=== PATIENT | female | born 1930 | race Caucasian/White ===

== ENCOUNTER 2018-10-17 17:13 | Observation (INO) ==
--- NOTE | 2018-10-17 21:23 | Internal Med History&Physical ---
<Quan Murrell - Last Filed: 10/18/18 01:08> Date of Encounter: 10/18/18 Time of Encounter: 22:46 Internal Medicine - H&P: HPI Chief complaint: SOB Admitted From: Emergency Dept Plans for Post Hospital Care: Home History of present illness: Ms. LANDIN is a 87 year old female with past medical history of hypertension, hyperlipidemia presents the emergency department with complaint of shortness of breath. She initially presented to [facility] emergency room. Patient states that she has been experiencing shortness breath on exertion for approximately 1 week. She has never experienced these symptoms in the past except for one episode approximately 6 years ago when she had pneumonia. Shortness of breath is not present at rest and she has no associated fevers, chills, productive cough, nausea, vomiting, changes in bowel movement, changes in urinary symptoms, rashes, numbness, tingling, joint pains. She does not have symptoms orthopnea but does admit to some lower extremity edema and and abdominal fullness. She did have some epigastric abdominal pain earlier this evening which she states is due to her pushing her abdomen due to the fluid. She also denies any symptoms of dysphagia, reflux, odynophagia. She states that overall oral intake has been relatively poor due to poor appetite. In the [facility] emergency room, vital signs are stable. Laboratory results showed: WBC 7.2, hemoglobin 9.2, platelets 417, sodium 135, ataxia 5.6, chloride 109, bicarb 17, BUNs/creatinine of 35/1.56, glucose 144. LFTs show alkaline phosphatase 108, AST of 26, ALT 14, albumin 3.2, lipase 48. D-dimer was obtained and was elevated at 3295. Chest x-ray shows no acute process and troponin was within normal limits. Bilateral lower extremity Dopplers were obtained and were negative for DVT. She was given subcutaneous Lovenox for concerns for pulmonary embolism, [address] of the abdomen was also obtained which showed ascites with omental caking which may be secondary to mesenteric edema but malignancy could not be ruled out. At time of interview, patient states that she is feeling well and is not currently short of breath. She is also experiencing abdominal pain at this time is still expressing some abdominal fullness. Past medical history: As above. Patient also states that she is supposed to be on iron supplementation and is scheduled to see a engineering vice president near future Past surgical history: Patient denies Social history: Denies tobacco use, alcohol use, drug use Family history: Father with esophageal cancer, sister with breast cancer Internal Medicine - H&P: Meds Amlodipine Besylate 5 mg PO DAILY 10/17/18 [History] Aspirin [Lo-Dose Aspirin EC] 81 mg PO 10/17/18 [History] Atorvastatin Calcium [Lipitor] PO HS 10/17/18 [History] Carvedilol [Coreg] 6.25 mg PO BIDWM 10/17/18 [History] Lisinopril-HCTZ 20-12.5 [Prinzide 20-12.5] PO BID 10/17/18 [History] Multivit-Min/FA/Lycopen/Lutein [Centrum Silver Tablet] 1 each PO 10/17/18 [ History] Allergy/AdvReac Type Severity Reaction Status Date / Time No Known Allergies Allergy Verified 10/17/18 21:52 All Systems PM: A 10-system review of systems was performed and is negative for pertinent findings except as documented above in the HPI. Review of systems: - Constitutional: Denies fevers, chills, weight loss, generalized fatigue - Head/Neck: Denies CARPENTER, neck stiffness - EENT: Denies vision changes/blurriness,, rhinorrhea, congestion, sore throat, odynaphagia , dysphagia - CVS: Denies chest pain, palpitations, orthopnea, edema, PND, - Pulm: Admits to shortness of breath on exertion. Denies sputum, hematemesis, wheezing - GI: Abdominal pain. Denies anorexia, nausea, vomiting, diarrhea, constipation, melena - : Denies dysuria, increased frequency, urgency, hematuria, - Heme: Denies ease of bleeding or bruising - MSK: Denies joint pain, limited ROM - Skin: Denies rashes, ulcers, color changes, - Neuro: Denies CARPENTER, paresthesias, focal deficits, ataxia, - Constitutional Exam: Gen.: Vitals noted. No acute distress. AAOx3, resting comfortably in bed. HEENT: PERRL/EOMI, oropharynx clear, Normocephalic, atraumatic, MMM Neck: Supple. No adenopathy. No thyroid nodules. Cardiac: RRR- mildly tachycardic, no murmur, +S1/S2, 1+ BLE edema Pulmonary: CTA bilaterally, no wheezes, rales or rhonchi, equal chest expansion, unlabored breathing Abdomen: soft, nontender, BS noted, no guarding, no palpable HSM. Distended, fluid wave Skin: warm and dry, no visible lesions. MSK: ROM intact, no joint swelling noted, gait no assessed while in bed. Non tender calf or clubbing Neuro: A&Ox3, moves all extremities, no focal deficits, sensation intact, Psych: Appropriate mood and behavior, AOx3 Internal Med - H&P Results - Labs CBC & Chem 7: 10/17/18 22:34 10/17/18 22:34 - Assessment and Plan (1) Shortness of breath Current Visit: Yes Status: Acute Assessment and plan: - Etiology may be related to ascites as below - CXR in [place] shows no acute process - Clinically has low suspicion for infectious process - D-dimer elevated which may be related to malignancy, but also may be related to PE - Dopplers negative in [place] - Given lovenox in [place] - Currently tolerating room air without difficulty. Plan - Will order V/Q scan - Will treat fluid overload status as below for ascites - Suspect that symptoms will improve with paracentesis (2) Ascites Current Visit: Yes Status: Suspected Assessment and plan: - Possible malignant ascites, primary unclear - Differential includes GI vs ovarian cancer - CT abdomen/pelvis in [place] does not mention primary but states mesenteric edema may be due to other fluid overload states - CT does mention mesenteric caking which does raise suspicion for malignancy however - Family history of esophageal cancer Plan - Will order IR consult for diagnostic paracentesis with pleural studies - Echocardiogram - urine studies - Prealbumin Qualifiers: Ascites type: malignant Qualified Code(s): R18.0 - Malignant ascites (3) QUENTIN (acute kidney injury) Current Visit: Yes Status: Acute Assessment and plan: - BUN/Cr of 35/1.56 - Unclear baseline - patent states that she was supposed to establish with Dr. Chambers in near future - K of 5.6, Bicarb of 17 may be related to this - Etiology if an QUENTIN may be due to decreased oral intake however patient clinically appears hypervolemic. - Possible third spacing due to hypoalbuminemia Plan - Will repeat labs at our facility and trend with AM labs - Will hold off fluids given volume status at this time - Will obtain urine studies to rule out nephrotic syndrome - Will change CTA to V/Q as above (4) Metabolic acidosis Current Visit: Yes Status: Acute Assessment and plan: - Bicarb of 17 - AG of 9 - Etiology unclear at this time - Possible GI related, patient reported loose bowel movements recently due to iron supplementation - Also a possibility is RTA, K is 5.6 which may point to type 4. - Will repeat labs to confirm, obtain urine studies (5) HTN (hypertension) Current Visit: Yes Status: Chronic Assessment and plan: - well controlled - Will continue home meds except for BILLIE due to QUENTIN Qualifiers: Hypertension type: essential hypertension Qualified Code(s): I10 - Essential (primary) hypertension (6) HLD (hyperlipidemia) Current Visit: Yes Status: Chronic Assessment and plan: continue statin Qualifiers: Hyperlipidemia type: unspecified Qualified Code(s): E78.5 - Hyperlipidemia, unspecified (7) Elevated d-dimer Current Visit: Yes Status: Acute Assessment and plan: - Possible due to malignancy but cannot rule out PE - Bilateral dopplers negative in [place]. - Elevated at 3295 - V/Q ordered as above (8) DVT prophylaxis Current Visit: Yes Status: Acute Assessment and plan: received lovenox in [place]. Will monitor for now and check on V/Q tomorrow - Time Spent With Patient Total time spent is greater than 50% in coordination of care (as documented) at patient's floor/unit and/or counseling patient: <Josie Gregory Z - Last Filed: 10/18/18 06:07> Date of Encounter: 10/17/18 Internal Medicine - H&P: HPI History of present illness: Ms. Landin is a 88 year old female All Systems PM: A 10-system review of systems was performed and is negative for pertinent findings except as documented above in the HPI. - Constitutional Vitals: Temp Pulse Resp BP Pulse Ox 98.5 F 91 18 135/58 96 10/18/18 03:09 10/18/18 03:09 10/18/18 03:09 10/18/18 03:09 10/18/18 03:09 Internal Med - H&P Results - Labs CBC & Chem 7: 10/17/18 22:34 10/17/18 22:34 Labs: Short CBC 10/17/18 Range/Units 22:34 WBC 5.8 (4.3-11.1) K/mcL Hgb 8.6 L (11.5-15.4) g/dL Hct 27.2 L (35.3-44.9) % Plt Count 391 (140-400) K/mcL Neutrophils # 3.7 (1.6-8.9) K/mcL BMP 10/17/18 22:34 Sodium 136 Potassium 5.2 H Chloride 111 H Carbon Dioxide 16 L BUN 33 H Creatinine 1.46 H Glucose 108 H Calcium 8.5 L Liver Function 10/17/18 Range/Units 22:34 Total Bilirubin 0.3 (0.3-1.0) mg/dL AST 22 (13-39) Units/L ALT 13 (7-52) Units/L Alkaline Phosphatase 98 (34-104) Units/L Albumin 3.0 L (3.5-5.7) g/dL - Time Spent With Patient Total time spent is greater than 50% in coordination of care (as documented) at patient's floor/unit and/or counseling patient: - Attending Attestation on 10/17/18 I performed a history and physical examination of the patient and discussed his management with the resident. I reviewed the residents note and agree with the documented findings and plan of care.
[2018-10-17] MEDS ORDERED: Acetaminophen 325 MG TABLET PO PRN (22:19)
[2018-10-17] MEDS ORDERED: *HR* HYDROcodone/Acet 5/325 mg TABLET PO PRN (22:19)
[2018-10-17] MEDS ORDERED: Naloxone 0.4 MG/ML INJ IVP PRN (22:19)
[2018-10-17] MEDS ORDERED: Ondansetron 4 MG/2 ML VIAL IVP PRN (22:19)
[2018-10-17 22:54] LABS: Basophils % 0.3 %; Eosinophils # 0.1 K/mcL (0.0-0.6); Eosinophils % 1.4 %; Hematocrit 27.2 % (35.3-44.9); Hemoglobin 8.6 g/dL (11.5-15.4); Lymphocytes # 1.2 K/mcL (0.6-4.6); Lymphocytes % 20.7 %; Mean Corpuscular HGB Conc 31.6 g/dL (31.6-35.5); Mean Corpuscular Hemoglobin 32.7 pg (28.0-33.3); Mean Corpuscular Volume 103.4 fL (83.0-100.0); Mean Platelet Volume 9.7 fL (9.4-12.4); Monocytes # 0.7 K/mcL (0.0-1.3); Monocytes % 12.4 %; Neutrophils # 3.7 K/mcL (1.6-8.9); Platelet Count 391 K/mcL (140-400); Red Blood Count 2.63 M/mcL (3.82-4.97); Red Cell Distribution Width 15.5 % (11.5-14.5); Segmented Neutrophils % 64.2 %; White Blood Count 5.8 K/mcL (4.3-11.1)
[2018-10-17 23:17] LABS: Albumin/Globulin Ratio 0.8 (1.1-2.2); Bilirubin,Total 0.3 mg/dL (0.3-1.0); Calcium 8.5 mg/dL (8.6-10.3); Globulin 3.8 g/dL (2.4-3.5); Potassium 5.2 mEq/L (3.5-5.1); Total Protein 6.8 g/dL (6.4-8.9)
[2018-10-18 04:28] LABS: Protein/Creatinine Ratio,Urine 0.11 mg/mg (0.00-0.20)
[2018-10-18 04:45] LABS: Creatinine,Urine 105 mg/dL; Microalbumin,Urine < 7 mg/L
[2018-10-18 07:06] LABS: Basophils % 0.6 %; Eosinophils # 0.1 K/mcL (0.0-0.6); Eosinophils % 1.4 %; Hematocrit 25.6 % (35.3-44.9); Immature Granulocytes % 1.6 % (0-4); Lymphocytes % 19.4 %; Mean Corpuscular HGB Conc 31.3 g/dL (31.6-35.5); Mean Corpuscular Hemoglobin 32.7 pg (28.0-33.3); Mean Corpuscular Volume 104.5 fL (83.0-100.0); Mean Platelet Volume 9.9 fL (9.4-12.4); Monocytes # 0.6 K/mcL (0.0-1.3); Monocytes % 12.4 %; Neutrophils # 3.3 K/mcL (1.6-8.9); Platelet Count 390 K/mcL (140-400); Red Blood Count 2.45 M/mcL (3.82-4.97); Red Cell Distribution Width 15.8 % (11.5-14.5); Segmented Neutrophils % 64.6 %; White Blood Count 5.1 K/mcL (4.3-11.1)
[2018-10-18 07:18] LABS: INR 1.3; Prothrombin Time 14.2 Seconds (9.4-12.1)
[2018-10-18 07:27] LABS: Albumin 2.7 g/dL (3.5-5.7); Calcium 8.4 mg/dL (8.6-10.3); Potassium 5.5 mEq/L (3.5-5.1)
[2018-10-18] MEDS: Aspirin Enteric Coated 81 MG Tablet PO SCH (10:02)
[2018-10-18] MEDS: amLODIPine 5 MG TABLET PO SCH (10:02)
[2018-10-18 10:30] LABS: Bilirubin,Urine Negative (Negative); Blood,Urine Negative (Negative); Clarity,Urine Cloudy (Clear); Color,Urine Yellow (Yellow); Glucose,Urine (UA) Normal (Normal); Ketones,Urine Negative (Negative); Leukocyte Esterase,Urine Small (Negative); Nitrite,Urine Negative (Negative); PH,Urine 5.5 pH Units (5.0-8.0); Protein,Urine Negative (Neg-Trace); Specific Gravity,Urine 1.018 (1.010-1.025); Urobilinogen,Urine Normal (Normal)
[2018-10-18 10:33] LABS: Bacteria,Urine Few per hpf (None-Few); Hyaline Casts,Urine None Seen per lpf (None-Few); Squamous Epithelial Cell,Urine Many per lpf (None-Few)
[2018-10-18 10:44] LABS: RBC,Urine 0-3 per hpf (0-3)
--- NOTE | 2018-10-18 12:28 | IR Procedure Note ---
Date of procedure: 10/18/18 Consent Obtained: Verbal consent, Written consent Timeout: Correct patient and procedure verified, Correct site verified, Time out performed, Skin prep completed Local anesthetic: Lidocaine 1% Was there an radiology practitioner assistant present: No Estimated blood loss (cc): 1 Complications: None; Tolerated procedure well Indications: Ascites Procedure Performed: Paracentesis Site/Technique: US guided paracentesis performed Results/Findings (any specimens removed): Small volume abdominal ascites Post Procedure Treatment Plan: Continue inpatient care Specimen: serous ascites
[2018-10-18 14:13] LABS: Total Protein,Peritoneal Fluid 4.5 g/dL
[2018-10-18 14:33] LABS: RBC,Peritoneal Fluid < 0.002 M/mcL
[2018-10-18 16:21] LABS: Basophils,Peritoneal Fluid 0 %; Eosinophils,Peritoneal Fluid 0 %
[2018-10-18 16:29] LABS: Appearance of Peritoneal Fl CLOUDY (Clear)
--- NOTE | 2018-10-18 16:43 | Internal Med Progress Note ---
Hospitalist Progress Note - Encounter Date of Encounter: 10/18/18 Time of Encounter: 10:00 - Subjective Interval History: No major events overnight. Patient was seen this a.m. sHe denied fever, chills or night sweats. sHe has no nausea, vomiting or abdominal pain. Patient denied chest pain, shortness of breath or palpitation. - Exam Vitals: Temp Pulse Resp BP Pulse Ox 98.1 F 87 14 128/64 98 10/18/18 14:40 10/18/18 14:40 10/18/18 14:40 10/18/18 14:40 10/18/18 14:40 Exam: Gen.: Vitals noted. No acute distress. AAOx3, resting comfortably in bed. HEENT: PERRL/EOMI, oropharynx clear, Normocephalic, atraumatic, MMM Neck: Supple. No adenopathy. No thyroid nodules. Cardiac: RRR- mildly tachycardic, no murmur, +S1/S2, 1+ BLE edema Pulmonary: CTA bilaterally, no wheezes, rales or rhonchi, equal chest expansion, unlabored breathing Abdomen: soft, nontender, BS noted, no guarding, no palpable HSM. Distended, fluid wave Skin: warm and dry, no visible lesions. MSK: ROM intact, no joint swelling noted, gait no assessed while in bed. Non tender calf or clubbing Neuro: A&Ox3, moves all extremities, no focal deficits, sensation intact, Psych: Appropriate mood and behavior, AOx3 - Assessment and Plan (1) Hyperkalemia Current Visit: Yes Status: Acute (2) QUENTIN (acute kidney injury) Current Visit: Yes Status: Acute (3) DVT prophylaxis Current Visit: Yes Status: Acute (4) Elevated d-dimer Current Visit: Yes Status: Acute (5) HTN (hypertension) Current Visit: Yes Status: Chronic (6) Ascites Current Visit: Yes Status: Suspected - Summary of Assessment and Plan Summary of Assessment and Plan: 88-year-old female with history of HTN, hyperlipidemia, CKD who was sent from [facility] due to shortness of breath. She had exertional shortness of breath for approximately a week. She also noted epigastric abdominal pain with abdominal bloating started at the same time. She denied unintentional weight loss, fever, or night sweats however she endorsed chills. She had elevated d- dimer at [place] for which she had lower extremity Doppler with negative findings for DVT. Patient was sent to our facility for further management. Ascites: - Unknown etiology at this point. IR was consulted and 3 L of serous fluid was drained. - Fluid analysis is pending. I sent for cytology, cultures, and albumin level. - She is known to have chronic kidney disease for which she was referred to a ad clerk by her family doctor. Very unlikely to be 2/2 nephrotic syndrome given her low urine albumin to creatinine ratio. - CT of the abdomen at [facility] did not reveal cirrhosis however it revealed ascites with mesenteric edema and questionable omental caking. - She had Elevated D-dimer at [facility], US doppler was negative for PE, V/Q scan was negative here. (Unable to give contrast given her CKD) - Echo with EF 60%, mild diastolic dysfunction, normal right ventricle, [id number] AR, mild TR, mild pulmonary hypertension. - At this point, given her elevated d-dimer: will check for US pelvis to r/u ovarian cancer. Cancer antigen of CA 125/CEA/CA 19-9 ordered. - I would go ahead and order ultrasound of the abdomen to rule out cirrhosis. LF T is normal, so budd chiari syndrome is not on my DD. Anemia: - Hemoglobin is 8, no baseline to compare. - We will check iron profile, ferritin, B12, TSH, folic acid, occult blood. CKD: - Her creatinine is 1.4, unknown baseline. Request to get outpatient records. - Was referred to a ad clerk as outpatient however she was not able to see since she got admitted to the hospital. - Her globulin levels are elevated. Along with her anemia and non anion gap acidosis, I will check her free light chains and protein electrophoresis. - check hepatitis profile as well. - Will hold of IVF or Diuretics at this point. hold Lisinopril and Hctz. - Nephrology service is consulted. Appreciate recommendation. Hyperkalemia: - 2/2 above and acidosis. - We will give her Kayexalate. - Check BMP tomorrow. dvt PPX: sc heparin I reviewed independently all laboratory workup, pertinent images including x- rays and CT scans. I also reviewed independently and EKGs and my findings are in the body of my assessment and plan. I ordered the laboratory workup and images myself. I discussed finding with patient's, their families, RN's and consultants involved in the care of the patient. - Time Spent with Patient Total time spent is greater than 50% in coordination of care (as documented) at patient's floor/unit and/or counseling patient: Plan of Care Discussed with: patient Internal Medicine: Result - Labs CBC & Chem 7: 10/18/18 06:17 10/18/18 06:17 Labs: Short CBC 10/17/18 10/18/18 Range/Units 22:34 06:17 WBC 5.8 5.1 (4.3-11.1) K/mcL Hgb 8.6 L 8.0 L (11.5-15.4) g/dL Hct 27.2 L 25.6 L (35.3-44.9) % Plt Count 391 390 (140-400) K/mcL Neutrophils # 3.7 3.3 (1.6-8.9) K/mcL BMP 10/17/18 10/18/18 22:34 06:17 Sodium 136 139 Potassium 5.2 H 5.5 H Chloride 111 H 112 H Carbon Dioxide 16 L 19 L BUN 33 H 32 H Creatinine 1.46 H 1.49 H Glucose 108 H 98 Calcium 8.5 L 8.4 L Liver Function 10/17/18 10/18/18 Range/Units 22:34 06:17 Total Bilirubin 0.3 (0.3-1.0) mg/dL AST 22 (13-39) Units/L ALT 13 (7-52) Units/L Alkaline Phosphatase 98 (34-104) Units/L Albumin 3.0 L 2.7 L (3.5-5.7) g/dL Urine 10/18/18 Range/Units 03:40 Urine Color Yellow (Yellow) Urine Clarity Cloudy A (Clear) Urine pH 5.5 (5.0-8.0) pH Units Ur Specific [place] 1.018 (1.010-1.025) Urine Protein Negative (Neg-Trace) mg/dL Urine Glucose (UA) Normal (Normal) mg/dL - ABG Interpretation ABG results: PT/INR, D-dimer PT 14.2 Seconds (9.4-12.1) H 10/18/18 06:17 - Impressions Impressions Pulmonary Perfusion Imaging 10/18/18 06:00 IMPRESSION: 1. Low probability for acute pulmonary emboli. 2. Ventilation findings consistent with acute versus chronic airways disease. 3. 2.6 cm diameter rounded double density overlapping the left upper lobe/scapula which on the 10/17/2018 radiograph corresponds with a external cardiac monitoring sticker correspond clinically. If there is no residual sticker along the left anterior chest wall then a follow-up CT thorax without contrast is recommended. D/ / 10/18/2018 15:50:36 Randall Bolivar MD / racheal Interpreting Provider: Randall Bolivar MD Paracentesis Ultrasound 10/18/18 08:27 IMPRESSION: Successful ultrasound guided diagnostic paracentesis. D/ / Quan Meek MD / Quan Meek MD Interpreting Provider: Quan Meek MD Chest X-Ray 10/18/18 13:05 IMPRESSION: 1. Low probability for acute pulmonary emboli. 2. Ventilation findings consistent with acute versus chronic airways disease. 3. 2.6 cm diameter rounded double density overlapping the left upper lobe/scapula which on the 10/17/2018 radiograph corresponds with a external cardiac monitoring sticker correspond clinically. If there is no residual sticker along the left anterior chest wall then a follow-up CT thorax without contrast is recommended. D/ / 10/18/2018 15:50:36 Randall Bolivar MD / racheal Interpreting Provider: Randall Bolivar MD Echocardiogram 10/18/18 22:34 Impressions: LVEF 60%. Mild left ventricular diastolic dysfunction. Normal LV chamber size, wall thickness and systolic function. Normal right ventricular structure and function. Mildly dilated left atrium. Mild-moderate aortic regurgitation. Mild tricuspid regurgitation. Mild pulmonary hypertension.Estimated RVSP is 39 mmHg. Left Ventricular Wall Motion: Rest Echo Findings All wall segments showed normal motion. Findings: Study Quality * Technically adequate exam. ECG Findings * Normal sinus rhythm. Left Ventricle * LVEF 60%. * Mild left ventricular diastolic dysfunction. * Normal LV chamber size, wall thickness and systolic function. Right Ventricle * Normal right ventricular structure and function. Left Atrium * Mildly dilated left atrium. Right Atrium * Normal right atrial size. Interatrial Septum * Interatrial septum not well evaluated. Aortic Valve * Trileaflet aortic valve. * Moderately sclerotic aortic valve leaflets. * Mild-moderate aortic regurgitation. * No aortic stenosis. Mitral Valve * Normal mitral valve structure. * No mitral stenosis. * Trace mitral regurgitation. Tricuspid Valve * No tricuspid stenosis. * Normal tricuspid valve structure. * Mild tricuspid regurgitation. * Mild pulmonary hypertension.Estimated RVSP is 39 mmHg. * * Estimated RA pressure is 3 mmHg. Pulmonic Valve * Trace pulmonic regurgitation. Aorta * Normally sized aortic root. Pericardium * The pericardium appears normal. IVC * Normal IVC dimensions and inspiratory collapse. Pulmonary Artery * Normal visualized portions of the main pulmonary artery. Consult Discharge Plan - Plan Referrals: Holly Rojas MD [Primary Care Provider] - (5) HTN (hypertension) Qualifiers: Hypertension type: essential hypertension Qualified Code(s): I10 - Essential (primary) hypertension (6) Ascites Qualifiers: Ascites type: malignant Qualified Code(s): R18.0 - Malignant ascites
[2018-10-18] MEDS: *HR* Heparin 5,000 UNIT/ML VIAL SQ SCH (17:37)
[2018-10-19 03:48] LABS: VBG HCO3 19 mEq/L (21-27); VBG PCO2 38 mmHg (41-51); VBG PO2 64 mmHg (25-50)
[2018-10-19 03:53] LABS: Hematocrit 24.9 % (35.3-44.9); Hemoglobin 7.7 g/dL (11.5-15.4); Mean Corpuscular HGB Conc 30.9 g/dL (31.6-35.5); Mean Corpuscular Hemoglobin 32.5 pg (28.0-33.3); Mean Corpuscular Volume 105.1 fL (83.0-100.0); Mean Platelet Volume 9.7 fL (9.4-12.4); Platelet Count 389 K/mcL (140-400); Red Blood Count 2.37 M/mcL (3.82-4.97); Red Cell Distribution Width 15.7 % (11.5-14.5); White Blood Count 5.6 K/mcL (4.3-11.1)
[2018-10-19 04:06] LABS: Albumin 2.7 g/dL (3.5-5.7); Albumin/Globulin Ratio 0.8 (1.1-2.2); Bilirubin,Total 0.3 mg/dL (0.3-1.0); Globulin 3.4 g/dL (2.4-3.5); Potassium 4.7 mEq/L (3.5-5.1); Total Protein 6.1 g/dL (6.4-8.9)
[2018-10-19 04:17] LABS: Carcinoembryonic Antigen 0.7 ng/mL (Less than 5.0); Thyroid Stimulating Hormone 2.232 mcIU/mL (0.340-5.600)
[2018-10-19 04:28] LABS: Folate > 22.3 ng/mL (3.0-16.0)
[2018-10-19 04:35] LABS: Vitamin B12 227 pg/mL (250-1100)
[2018-10-19 05:08] LABS: Hepatitis B Surface Antigen Nonreactive (Nonreactive)
[2018-10-19] MEDS: *HR* Heparin 5,000 UNIT/ML VIAL SQ SCH ×2 (05:15→17:41)
[2018-10-19 05:37] LABS: Hepatitis B Core IgM Nonreactive (Nonreactive); Hepatitis C Virus Antibody Nonreactive (Nonreactive)
[2018-10-19 05:39] LABS: Hepatitis A Antibody IgM Nonreactive (Nonreactive)
[2018-10-19] MEDS: Aspirin Enteric Coated 81 MG Tablet PO SCH (08:17)
[2018-10-19] MEDS: amLODIPine 5 MG TABLET PO SCH (08:17)
[2018-10-19 08:57] LABS: Potassium,Urine 43.7 mEq/L; Sodium, Urine 96.9 mEq/L
--- NOTE | 2018-10-19 10:25 | Nephrology Consult Note ---
Date of Encounter: 10/19/18 Time of Encounter: 10:00 Assessment and Plan (1) CKD (chronic kidney disease), stage III Current Visit: Yes Status: Acute CKD stage III with elevate SCr that is trending better. Since she has an upcoming outpt appt with another streetsweeper operator Dr. Benson in [place], [place], and since her renal function is trending better, I will defer a renal work up at this time. I was informed that she is also transferring today. Thank you for having consulted the [facility] group. I will politely sign-off. Thank you. (2) HTN (hypertension) Current Visit: Yes Status: Chronic Hold any BILLIE or ARB for now d/t the recent hyperkalemia Qualifiers: Hypertension type: essential hypertension Qualified Code(s): I10 - Essential (primary) hypertension (3) Ascites Current Visit: Yes Status: Suspected as per primary. I was told that she may have a malignancy and that she is being transferred to [facility] Qualifiers: Ascites type: malignant Qualified Code(s): R18.0 - Malignant ascites (4) Hyperkalemia Current Visit: Yes Status: Resolved Resolved already History of Present Illness - Reason for Consult Consult date: 10/18/18 Chronic Kidney Disease Requesting physician: Tucker Carolina - Chief Complaint Elevated SCr - History of Present Illness The patient is a very pleasant 88-year-old female with a past medical history of chronic kidney disease who presented with abdominal pain and swelling. She was noted to have ascites and there is concern for possible malignancy. Nephrology was consulted due to her known chronic kidney disease and initially she was hyperkalemic as well as QUENTIN. Prior to admission, she had already been referred by her PCP to establish with a local streetsweeper operator in her hometown of [place], [place]. She said the appointment is scheduled 10/25/[address] Benson. Today, she did not affirm active nausea, vomiting, diarrhea, or other uremic symptoms and she reported that she is feeling better. She informed me that she is being prepared to transfer to [facility] for more cancer workup. I met her 2 adult sons and answered all of their questions at the bedside. I reviewed her labs, vital signs, medication list, progress notes and imaging, and also discussed with the hospitalist. She did not report taking NSAIDs prior to admission. Family history: She did not affirm having any first-degree relatives with a history of ESRD Past Med Surg Social Fam HX - Past Medical History Medical history: cancer, coronary artery disease, hyperlipidemia, hypertension Additional medical history: skin cancer on head with removal Psychiatric history: no psych history - Past Surgical History Additional surgical history: hand surgery - Social History Smoking Status: Never smoker Smokeless Tobacco Status: No Alcohol use: none Drug use: none Medications and Allergies Amlodipine Besylate 5 mg PO DAILY 10/17/18 [History] Aspirin [Lo-Dose Aspirin EC] 81 mg PO 10/17/18 [History] Atorvastatin Calcium [Lipitor] PO HS 10/17/18 [History] Carvedilol [Coreg] 6.25 mg PO BIDWM 10/17/18 [History] Multivit-Min/FA/Lycopen/Lutein [Centrum Silver Tablet] 1 each PO 10/17/18 [Hist ory] Allergy/AdvReac Type Severity Reaction Status Date / Time No Known Allergies Allergy Verified 10/17/18 21:52 Review of Systems All Systems: reviewed and no additional remarkable complaints except as stated Exam - Vital Signs Vital signs: Initial Vital Signs Temp Pulse Resp BP Pulse Ox 98.2 F 99 20 138/73 97 10/17/18 22:00 10/17/18 22:00 10/17/18 22:00 10/17/18 22:00 10/17/18 22:00 Vital Signs - Last 8 Hours Temp Pulse Resp BP Pulse Ox 10/19/18 07:15 98.2 F 79 14 108/62 96 10/19/18 03:00 98.7 F 89 15 115/62 97 Intake and Output 10/18/18 10/19/18 10/19/18 23:59 07:59 15:59 Intake Total 240 / 360 0 / 0 Balance 240 / 360 0 / 0 Intake: Oral 240 / 360 0 / 0 Other: Meal NPO Percent of Meal Consumed 75% # Voids 0 # Bowel Movements 0 Weight 77.9 kg Blood Glucose* 97 Patient Weight 10/19/18 23:59 Weight 77.9 kg - General Appearance General appearance: well-developed, well-nourished, frail EENT: ATNC, PERRL, mucous membranes dry Neck: no JVD, supple Respiratory: clear Cardiology: no edema, regular rate, regular rhythm, normal S1, normal S2 Gastrointestinal: normoactive bowel sounds, no guarding, distended Integumentary: warm and dry Neurologic: no focal deficit, no asterixis, alert and oriented x3 Musculoskeletal: no erythema, no cyanosis, no clubbing Psychiatric: mood/affect appropriate, cooperative Results - Lab Results 10/19/18 03:26 10/19/18 03:26 Most recent lab results 10/18/18 10/19/18 03:40 03:26 Calcium 8.0 L Urine Sodium 96.9 Consult Discharge Plan - Plan Referrals: Holly oRjas MD [Primary Care Provider] -
--- NOTE | 2018-10-19 11:10 | Discharge Summary ---
- NOTES TO OUTPATIENT PROVIDER Notes to Outpatient Provider: Follow-up on anemia, hematology/oncology service. Orders not resulted at time of discharge: Pending orders 10/17/18 22:37 Cytology [PTH] Routine 10/18/18 12:20 Albumin,Body Fluid Routine 10/18/18 16:32 Culture,Anaerobic [RM] Routine Culture,Body Fluid [RM] Routine 10/18/18 16:33 Cytology [PTH] Routine 10/18/18 17:06 Culture,Urine [RM] Routine Occult Blood,Stool [BF] Routine 10/19/18 03:26 Cancer Antigen-GI (CA 19-9) AM 0400 Protein Electrophoresis AM 0400 Serum Free Light Chain [[place] Lambda Qnt FLC w Ratio] AM 0400 Date of Encounter: 10/19/18 Time of Encounter: 10:00 - Discharge Diagnosis (1) Cancer antigen 125 (CA 125) elevation Priority: Primary Status: Acute (2) Ascites Priority: Secondary Status: Suspected Qualifiers: Ascites type: malignant Qualified Code(s): R18.0 - Malignant ascites (3) Hyperkalemia Priority: Secondary Status: Resolved (4) QUENTIN (acute kidney injury) Priority: Secondary Status: Acute (5) DVT prophylaxis Priority: Secondary Status: Acute (6) Elevated d-dimer Priority: Secondary Status: Acute (7) HTN (hypertension) Priority: Secondary Status: Chronic Qualifiers: Hypertension type: essential hypertension Qualified Code(s): I10 - Essential (primary) hypertension Hospital course: 88-year-old female with history of HTN, hyperlipidemia, CKD who was sent from [facility] due to exertional dysnpea for approximately a week. She also noted epigastric abdominal pain with abdominal bloating started at the same time. She denied unintentional weight loss, fever, or night sweats however she endorsed chills. She had elevated d-dimer at [place] for which she had lower extremity Doppler with negative findings for DVT. Patient was sent to our facility for further management. Her symptoms are managed as following: Ascites: - Unknown etiology at this point, 3 L of serous fluid was drained. Fluid analysis is missing albumin level but doesn't look hepatic in etiology. Urine albumin/Cr wasn't elevated. Echo with EF 60%, mild diastolic dysfunction, normal right ventricle, [id number] AR, mild TR, mild pulmonary hypertension. CT of the abdomen at [place] did not reveal cirrhosis however it revealed ascites with mesenteric edema and questionable omental caking. Ultrasound pelvis and transvaginal ultrasound revealed poor visualization of the ovaries but showed mildly thickened endometrial stripe compared to the patient age. CA 125 marker was elevated to 404. I discussed this finidings with Hem/onc who reviewed the blood work and images and recommended a transfer to [facility] for [facility]/onc Oncology service as we don't have it inhouse. Patient and family is agreeable. Patient was accepted by their service. elevated D-dimer: She had Elevated D-dimer at [facility], [place] doppler was negative for DVT, V/Q scan was negative here for PE. (Unable to give contrast given her CKD) Anemia: Hemoglobin is 8, no baseline to compare. Her vitamin B12 level and iron level were low. I consulted GI service but since patient is getting transferred to [facility], was different further management to their team over there. CKD: Her creatinine is 1.49, unknown baseline. Lisinopril and hydrochlorothiazide were placed on hold with improvement in her kidney dysfunction. Today, patient is asymptomatic. Hemodynamically stable. She will be transferred to [facility] for further evaluation of her elevated tumor markers which was discussed with her personally and with her family. Discharge discussed with: patient - Time Spent with Patient Total time spent providing and/or coordinating discharge services: 60 minutes - Discharge Medications Prescriptions: Continued Multivit-Min/FA/Lycopen/Lutein [Centrum Silver Tablet] 1 each PO Aspirin [Lo-Dose Aspirin EC] 81 mg PO Atorvastatin Calcium [Lipitor] PO HS Amlodipine Besylate 5 mg PO DAILY Carvedilol [Coreg] 6.25 mg PO BIDWM Discontinued Lisinopril-HCTZ 20-12.5 [Prinzide 20-12.5] PO BID Home Medications: Amlodipine Besylate 5 mg PO DAILY 10/17/18 [History] Aspirin [Lo-Dose Aspirin EC] 81 mg PO 10/17/18 [History] Atorvastatin Calcium [Lipitor] PO HS 10/17/18 [History] Carvedilol [Coreg] 6.25 mg PO BIDWM 10/17/18 [History] Multivit-Min/FA/Lycopen/Lutein [Centrum Silver Tablet] 1 each PO 10/17/18 [History] Allergies/Adverse Reactions: Allergy/AdvReac Type Severity Reaction Status Date / Time No Known Allergies Allergy Verified 10/17/18 21:52 Date of admission: 10/17/18 21:14 Primary care physician: Holly Rojas MD Consults: 10/17/18 22:34 Consult to Interventional Radiology [CONS] Routine Consulting Provider: Radiology Interventional Cols Reason for Consult: diagnostic paracentesis Call Completed: No 10/18/18 15:57 Consult to Nephrology [CONS] Routine Consulting Provider: [facility]/MANUEL/CHANELLE/KOSTAS Reason for Consult: QUENTIN Call Completed: No 10/19/18 08:09 Consult to Oncology Hematology [CONS] Routine Consulting Provider: [facility]cology [facility] Reason for Consult: elevated CA 125 Call Completed: Yes - Constitutional Vitals: Temp Pulse Resp BP Pulse Ox 98.2 F 79 14 108/62 96 10/19/18 07:15 10/19/18 07:15 10/19/18 07:15 10/19/18 07:15 10/19/18 07:15 Exam: Gen.: Vitals noted. No acute distress. AAOx3, resting comfortably in bed. HEENT: PERRL/EOMI, oropharynx clear, Normocephalic, atraumatic, MMM Neck: Supple. No adenopathy. No thyroid nodules. Cardiac: RRR- normal rate, no murmur, +S1/S2, no LE edema Pulmonary: CTA bilaterally, no wheezes, rales or rhonchi, equal chest expansion, unlabored breathing Abdomen: soft, nontender, BS noted, no guarding, no palpable HSM. no distention Skin: warm and dry, no visible lesions. MSK: ROM intact, no joint swelling noted, gait no assessed while in bed. Non tender calf or clubbing Neuro: A&Ox3, moves all extremities, no focal deficits, sensation intact, Psych: Appropriate mood and behavior, AOx3 - Patient Status Disposition: Transfer Intermediate Care Fac Condition: Good Functional capacity at discharge: independent ambulation Overall status at discharge: patient is not back to baseline - Discharge Instructions Follow Up With: Holly Rojas MD [Primary Care Provider] - - Diet and Activity Activity: resume usual activities as tolerated
[2018-10-19 20:34] LABS: Fluid Source for Albumin PERITONEAL FL
[2018-10-20] MEDS: *HR* Heparin 5,000 UNIT/ML VIAL SQ SCH (06:02)
[2018-10-20] MEDS: amLODIPine 5 MG TABLET PO SCH (09:00)
[2018-10-20] MEDS: Aspirin Enteric Coated 81 MG Tablet PO SCH (09:01)
--- NOTE | 2018-10-20 09:38 | Event Note ---
Date of Encounter: 10/20/18 Time of Encounter: 09:33 I have seen and evaluated the patient at bedside. patient reports she is feeling well today. denies chest pain, shortness of breath. denies abdominal distention. stated if she is not transferred to [facility] today she would like to go home and follow up with [facility] as outpatient. Physical exam: Vitals: Reviewed General: Alert and oriented x4. In no distress Skin: Normal color, no rash, no lesions. HEENT: EOM, pupils equal, round and reactive. Cardiovascular: RRR, normal S1 & S2, no rubs, murmurs or gallops. Lungs: CTA b/l, no wheezes or crackles. Abdomen: Obese, soft, non-tender, no rigidity. Extremities: No deformity, no edema or tenderness, no joint swelling or clubbing. Neurological: Normal cognition and motor skills. Rest of the physical exam is non contributory Assessment: 1. Abdominal Ascites 2. B12 deficiency 3. Macrocytic anemia 4. QUENTIN/CKD 5. HTN 6. VTE prophylaxis Plan: Patient remains clinically stable to be transferred to [facility] for further work up. DC summary dictated yesterday. will continue current management while inpatient.
[2018-10-20 10:48] VITALS: BP 112/66
[2018-10-21 05:04] LABS: Lambda Qnt Free Light Chains 4.16 mg/dL (0.57-2.63)
[2018-10-22 03:49] LABS: Alpha 2 Globulin (PEP) 0.96 g/dL (0.48-1.05); Beta Globulin (PEP) 0.65 g/dL (0.48-1.10)
[2018-10-22 14:06] LABS: IFE Reflexed IFE Done; Immunoglobulin A 256 mg/dL (68-408); Immunoglobulin G 1410 mg/dL (768-1632); Immunoglobulin M 54 mg/dL (35-263)
== END 2018-10-20 14:33 | disposition critical access hospital (66) ==
LOC: 3ANU → SUATTDRO 21:14
PROVIDERS: ADMIT Student in an Organized Health Care Education/Training Program; ATTEND Internal Medicine